=== PATIENT | female | born 1985 | race Caucasian/White ===

== ENCOUNTER 2020-12-27 11:10 | Outpatient (CLI) | payer BC ==
[2020-12-27 14:33] LABS: BHCG - Serum Negative (NEGATIVE); Pregs Control Background? CLEAR/WHITE (CLR/WHITE); Pregs Control Bar Appear? YES (CONTROL BAR)
[2020-12-28 01:30] LABS: SARS-CoV-2 PCR by NAA Not Detected (NotDetected)
== END 2020-12-27 11:11 | disposition home or self-care (01) ==
LOC: CSHLAB 11:10
PROVIDERS: ATTEND Surgery
DX: Z01.812 Encounter for preprocedural laboratory examination (principal); Z20.822 Contact with and (suspected) exposure to COVID-19; L05.91 Pilonidal cyst without abscess
CPT/HCPCS: 84703; 87635; U0003; U0005

== ENCOUNTER 2020-12-30 06:02 | Day surgery (SDC) | payer BC ==
[2020-12-29 13:09] VITALS: BMI 28.0
[2020-12-30] MEDS ORDERED: Lidocaine 1% MPF 2 ML VIAL ONE (06:44)
[2020-12-30] MEDS ORDERED: EPINEPHrine 1 MG/ML AMP ONE (07:02)
[2020-12-30] MEDS ORDERED: Bupivacaine PF 0.5% 30 ML VIAL ONE (07:03)
[2020-12-30] MEDS ORDERED: Midazolam HCl 2 mg/2 ml Vial ONE ×2 (07:19→07:21)
[2020-12-30] MEDS ORDERED: Fentanyl 100 MCG/2 ML VIAL ONE (07:21)
[2020-12-30] MEDS ORDERED: Ketorolac Tromethamine 15 MG/ML VIAL ONE ×2 (07:21→07:22)
[2020-12-30] MEDS ORDERED: PROPOFOL 20 ML ONE (07:21)
[2020-12-30] MEDS ORDERED: Glycopyrrolate 0.2 MG/ML 5 ML SYRINGE ONE (07:22)
[2020-12-30] MEDS ORDERED: Ondansetron PF 4 MG/2 ML Vial ONE (07:22)
[2020-12-30] MEDS ORDERED: Rocuronium Bromide 10 MG/ML (10ML VIAL) ONE (07:22)
[2020-12-30] MEDS ORDERED: Lidocaine 1% PF 5 ML VIAL ONE (07:22)
[2020-12-30] MEDS ORDERED: Dexamethasone 4 mg/ml Vial ONE (07:22)
[2020-12-30] MEDS ORDERED: HYDROmorphone 0.5 MG/0.5 ML SYRINGE ONE (08:06)
[2020-12-30] MEDS ORDERED: HYDROcodone/Acetaminophen 5/325 mg Tablet PO PRN (09:09)
[2020-12-30] MEDS ORDERED: Morphine 2 MG/ML VIAL ONE (09:12)
[2020-12-30] MEDS ORDERED: Meperidine HCl/PF 25 MG/ML VIAL ONE (09:18)
[2020-12-30] MEDS ORDERED: HYDROcodone/Acetaminophen 5/325 mg Tablet ONE (10:06)
[2020-12-30] MEDS ORDERED: Promethazine HCl 25 MG/ML VIAL ONE (10:14)
== END 2020-12-30 11:10 | disposition home or self-care (01) ==
LOC: CSHSDC 06:02
PROVIDERS: ATTEND Surgery
DX: L05.91 Pilonidal cyst without abscess (principal)
CPT/HCPCS: J0171; J1100; J1170; J1885; J2175; J2250; J2270; J2405; J2550; J2704; J3010; J3490; S0020